=== PATIENT | female | born 1985 | race Two or more races ===

== ENCOUNTER 2016-11-21 19:12 | Emergency (ER) | payer OTHER ==
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
[2016-11-21] MEDS ORDERED: IBUPROFEN 800 MG TABLET PO ONE (19:23)
[2016-11-21] MEDS ORDERED: LIDOCAINE 5% (700 MG) TRANSDERMAL ADH..PATCH TP ONE (20:43)
--- NOTE | 2016-11-21 20:56 | ER Document Report ---
ED General - General Chief Complaint: Shoulder Pain Stated Complaint: SHOULDER PAIN Mode of Arrival: Ambulatory TRAVEL OUTSIDE OF THE [place] IN LAST 30 DAYS: No - Related Data Allergies/Adverse Reactions: morphine [Morphine] Allergy (Verified 11/21/16 19:15) Past Medical History - General Information source: Patient - Social History Smoking Status: Never Smoker Chew tobacco use (# tins/day): No Frequency of alcohol use: None Drug Abuse: None Family History: Reviewed & Not Pertinent Patient has suicidal ideation: No Patient has homicidal ideation: No Renal/ Medical History: Denies: Hx Peritoneal Dialysis Past Surgical History: Reports: Hx Appendectomy - +Bowel resection, R wrist surgery, R partial oophrectomy - Immunizations Hx Diphtheria, Pertussis, Tetanus Vaccination: Yes Physical Exam - Vital signs Vitals: Temp Pulse Resp BP Pulse Ox 98.1 F 102 H 20 107/78 98 11/21/16 19:15 11/21/16 19:15 11/21/16 19:15 11/21/16 19:15 11/21/16 19:15 Course - Vital Signs Vital signs: Temp Pulse Resp BP Pulse Ox 98.1 F 102 H 20 107/78 98 11/21/16 19:15 11/21/16 19:15 11/21/16 19:15 11/21/16 19:15 11/21/16 19:15 Discharge - Discharge Clinical Impression: Right shoulder pain Qualifiers: Chronicity: acute Qualified Code(s): M25.511 - Pain in right shoulder Condition: Good Disposition: HOME, SELF-CARE Instructions: Shoulder Injury ([facility]) Additional Instructions: Please follow-up with your primary care physician or orthopedics surgeon. He may take your pain medication all for severe pain continue to take Tylenol Motrin for pain control. You may use Lidoderm patches prescribed you may also look and ask her pharmacist about salonpas with lidocaine Prescriptions: Lidocaine [Lidoderm 5% (700 mg) Transdermal Patch] 1 patch TP DAILY #10 adh..patch Forms: Return to Work
[2016-11-21 21:15] VITALS: BP 119/83
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
== END 2016-11-21 21:15 | disposition home or self-care (01) ==
LOC: ER 19:12
DX: M25.511 Pain in right shoulder (principal); Z98.890 Other specified postprocedural states
CPT/HCPCS: 99283

== ENCOUNTER 2017-11-19 21:40 | Emergency (ER) | payer SELFPAY | END 2017-11-19 22:00 | disposition left against medical advice (07) | LOC: ER 21:40 | DX: Z53.21 Procedure and treatment not carried out due to patient leaving prior to being seen by health care provider (principal); M79.603 Pain in arm, unspecified ==

== ENCOUNTER → 2017-12-02 | Outpatient (CLI) | payer MEDICAID ==
[2017-12-02 12:43] LABS: A TYPE INFLUENZA AG NEGATIVE (NEGATIVE); B INFLUENZA AG NEGATIVE (NEGATIVE)
== END ==
LOC: OD 12:06
PROVIDERS: ATTEND Nurse Practitioner Family
DX: Z20.828 Contact with and (suspected) exposure to other viral communicable diseases (principal)
CPT/HCPCS: 87804

== ENCOUNTER → 2018-02-23 | Outpatient (CLI) | payer MEDICAID | LOC: OD 17:52 | PROVIDERS: ATTEND Nurse Practitioner Acute Care | DX: J02.9 Acute pharyngitis, unspecified (principal) | CPT/HCPCS: 87070 ==

== ENCOUNTER 2018-04-29 00:42 | Emergency (ER) | payer MEDICAID ==
--- NOTE | 2018-04-29 00:58 | ER Document Report ---
ED General - General Chief Complaint: Shortness Of Breath Stated Complaint: DIFFICULTY BREATHING Time Seen by Provider: 04/29/18 00:48 Mode of Arrival: Medic Information source: Patient, Emergency Med Personnel Notes: 32-year-old female brought to the emergency department by EMS for shortness of breath. Patient has a history of asthma. Patient states over the last couple of days she has had increased shortness of breath and wheezing. She followed up with her primary care physician and was started on prednisone, antibiotic, inhalers. Patient states that she has been using these medications with minimal relief of symptoms. Patient states that her asthma began flaring up tonight and she was on her way to the emergency department when she had to call EMS because she was having a difficult time breathing. She denies any fever, chills, chest pain, nausea, vomiting, diaphoresis. In route to the emergency department, EMS gave the patient 2 albuterol treatments as well as 125 mg of Solu-Medrol. In the emergency department, patient is speaking in complete sentences. Patient states that she feels much better. TRAVEL OUTSIDE OF THE [place] IN LAST 30 DAYS: No - HPI Onset: Last week Onset/Duration: Gradual Quality of pain: No pain Severity: None Pain Level: Denies Associated symptoms: Shortness of breath Exacerbated by: Denies Relieved by: Denies Similar symptoms previously: Yes Recently seen / treated by doctor: Yes - Related Data Allergies/Adverse Reactions: morphine [Morphine] Allergy (Verified 11/21/16 19:15) Past Medical History - Social History Smoking Status: Never Smoker Family History: Reviewed & Not Pertinent Renal/ Medical History: Denies: Hx Peritoneal Dialysis Past Surgical History: Reports: Hx Appendectomy - +Bowel resection, R wrist surgery, R partial oophrectomy - Immunizations Hx Diphtheria, Pertussis, Tetanus Vaccination: Yes Review of Systems - Review of Systems Constitutional: No symptoms reported EENT: No symptoms reported Cardiovascular: No symptoms reported Respiratory: Cough, Short of breath Gastrointestinal: No symptoms reported Genitourinary: No symptoms reported Female Genitourinary: No symptoms reported Musculoskeletal: No symptoms reported Skin: No symptoms reported Neurological/Psychological: No symptoms reported -: Yes All other systems reviewed and negative Physical Exam - Vital signs Vitals: Pulse Ox 99 04/29/18 00:51 - Notes Notes: PHYSICAL EXAMINATION: GENERAL: Well-appearing, well-nourished and in no acute distress. HEAD: Atraumatic, normocephalic. EYES: Pupils equal round and reactive to light, extraocular movements intact, conjunctiva are normal. ENT: Nares patent, oropharynx clear without exudates. Moist mucous membranes. NECK: Normal range of motion, supple without lymphadenopathy LUNGS: Breath sounds clear to auscultation bilaterally and equal. No wheezes rales or rhonchi. HEART: Regular rate and rhythm without murmurs ABDOMEN: Soft, nontender, nondistended abdomen. No guarding, no rebound. No masses appreciated. Female : deferred Musculoskeletal: Normal range of motion, no pitting or edema. No cyanosis. NEUROLOGICAL: Cranial nerves grossly intact. Normal speech, normal gait. Normal sensory, motor exams PSYCH: Normal mood, normal affect. SKIN: Warm, Dry, normal turgor, no rashes or lesions noted. Course - Re-evaluation Re-evalutation: 04/29/18 00:58 When patient arrived in the emergency department, no wheezing appreciated. Patient received 2 treatments of albuterol in route. Patient is speaking in complete sentences. 04/29/18 01:57 XR done. No acute process seen. Patient feels better on re-evaluation. I told the patient to continue her inhalers, steroids and antibiotics as directed, to follow up with PCP this week, and to return for worsening symptoms. - Vital Signs Vital signs: Temp Pulse Resp BP Pulse Ox 110 H 20 120/67 97 04/29/18 01:00 04/29/18 01:00 04/29/18 01:00 04/29/18 01:00 Discharge - Discharge Clinical Impression: Asthma exacerbation Qualifiers: Asthma severity: moderate Asthma persistence: unspecified Qualified Code(s): J45.901 - Unspecified asthma with (acute) exacerbation Condition: Good Disposition: HOME, SELF-CARE Instructions: Asthma ([facility]) Referrals: VIPUL GARCIA NP [NURSE PRACTITIONER] - Follow up as needed
--- NOTE | 2018-04-29 01:34 | RADIOLOGY REPORT (SQ) ---
EXAM DESCRIPTION: XR CHEST 1 VIEW COMPLETED DATE/TME: 04/29/2018 00:52 CLINICAL HISTORY: cough, wheezing. COMPARISON: None. FINDINGS: Single frontal view of the chest. The cardiomediastinal silhouette has normal size and contour. No consolidation, pneumothorax, or pleural effusion. No displaced rib fractures identified. Upper abdominal soft tissues are unremarkable. IMPRESSION: 1. No acute pulmonary process identified.
[2018-04-29 02:38] VITALS: BP 118/77
== END 2018-04-29 02:30 | disposition home or self-care (01) ==
LOC: ER 00:42
DX: J45.901 Unspecified asthma with (acute) exacerbation (principal); R06.02 Shortness of breath; R05 Cough
CPT/HCPCS: 71045; 99285

== ENCOUNTER 2018-08-07 12:10 | Emergency (ER) | payer MEDICAID ==
[2018-08-07] MEDS ORDERED: HYDROMORPHONE HCL INJ/PF 2 MG/ML AMPULE IM ONE (12:20)
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
[2018-08-07] MEDS ORDERED: HYDROMORPHONE HCL INJ/PF 2 MG/ML AMPULE IV ONE ×2 (12:35→14:08)
[2018-08-07] MEDS ORDERED: NORMAL SALINE 500 ML IV ONE (12:36)
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
[2018-08-07 14:19] LABS: APPEARANCE,URINE CLEAR; BILIRUBIN,URINE NEGATIVE (NEGATIVE); COLOR,URINE YELLOW; GLUCOSE, URINE NEGATIVE (NEGATIVE); KETONES,URINE NEGATIVE (NEGATIVE); LEUKOCYTE ESTERASE,URINE NEGATIVE (NEGATIVE); NITRITE,URINE NEGATIVE (NEGATIVE); PROTEIN,URINE NEGATIVE (NEGATIVE); URINE SPECIFIC GRAVITY 1.021; UROBILINOGEN,URINE NEGATIVE mg/dL (<2.0)
[2018-08-07] MEDS ORDERED: FENTANYL CITRATE INJ/PF 100 MCG/2 ML AMPUL IV ONE (15:07)
[2018-08-07 16:09] VITALS: BP 113/76
== END 2018-08-07 16:13 | disposition home or self-care (01) ==
LOC: ER 12:10
DX: S06.0X0A Concussion without loss of consciousness, initial encounter (principal); S30.0XXA Contusion of lower back and pelvis, initial encounter; R10.9 Unspecified abdominal pain; M54.2 Cervicalgia; M79.10 Myalgia, unspecified site; W55.22XA Struck by cow, initial encounter; Y93.K9 Activity, other involving animal care; Y92.71 Barn as the place of occurrence of the external cause; J45.909 Unspecified asthma, uncomplicated; Z88.5 Allergy status to narcotic agent
CPT/HCPCS: 96376; 99284; 96372; 96374; 96375; 36415; 84702; 84703; 81001; 70450; 72125; 72128; 74177; L0120; J3010; J1170; J7040

== ENCOUNTER → 2018-09-17 | Outpatient (CLI) | payer MEDICAID ==
--- NOTE | 2018-09-18 10:42 | EKG REPORT ---
SEVERITY:- NORMAL ECG - SINUS RHYTHM : Confirmed by: Nicolle Martinez 18-Sep-2018 10:42:06
== END ==
LOC: OD 11:16
PROVIDERS: ATTEND Nurse Practitioner Family
DX: R07.9 Chest pain, unspecified (principal)
CPT/HCPCS: 93005; 93010

== ENCOUNTER → 2018-10-02 | Outpatient (CLI) | payer MEDICAID ==
[2018-10-02 10:08] LABS: HEMATOCRIT 38.1 % (36.0-47.0); HEMOGLOBIN 13.5 g/dL (12.0-15.5); MEAN CORPUSCULAR HEMOGLOBIN 31.3 pg (27.0-33.4); MEAN CORPUSCULAR HGB CONC 35.4 g/dL (32.0-36.0); MEAN CORPUSCULAR VOLUME 88 fl (80-97); PLATELET COUNT 311 10^3/uL (150-450); RED BLOOD COUNT 4.32 10^6/uL (3.72-5.28); RED CELL DISTRIBUTION WIDTH 13.4 % (11.5-14.0); WHITE BLOOD COUNT 7.7 10^3/uL (4.0-10.5)
[2018-10-02 10:44] LABS: ERYTHROCYTE SEDIMENTATION RATE 18 mm/hr (0-20)
[2018-10-02 11:22] LABS: ALANINE AMINOTRANSFERASE 29 U/L (9-52); ALBUMIN 4.2 g/dL (3.5-5.0); ALKALINE PHOSPHATASE 82 U/L (38-126); ANION GAP 9 (5-19); ASPARTATE AMINO TRANSFERASE 26 U/L (14-36); BILIRUBIN,DIRECT 0.3 mg/dL (0.0-0.4); BILIRUBIN,TOTAL 0.6 mg/dL (0.2-1.3); BLOOD UREA NITROGEN 15 mg/dL (7-20); CALCIUM 9.1 mg/dL (8.4-10.2); CARBON DIOXIDE 29 mmol/L (22-30); CHLORIDE 103 mmol/L (98-107); CHOLESTEROL 221.79 mg/dL (0-200); GLUCOSE 93 mg/dL (75-110); POTASSIUM 4.5 mmol/L (3.6-5.0); SODIUM 141.4 mmol/L (137-145); TOTAL PROTEIN 7.6 g/dL (6.3-8.2); TRIGLYCERIDES 94 mg/dL (<150)
[2018-10-02 11:35] LABS: DIRECT LDL 160 mg/dL (<100)
[2018-10-04 07:42] LABS: ANTINUCLEAR ANTIBODIES Negative (Negative)
== END ==
LOC: LAB 09:34
PROVIDERS: ATTEND Physician Assistant
DX: R07.9 Chest pain, unspecified (principal); R00.2 Palpitations
CPT/HCPCS: 36415; 80048; 80061; 80076; 83735; 84443; 85027; 85652; 86038; 86141

== ENCOUNTER 2018-10-19 19:07 | Emergency (ER) | payer MEDICAID ==
[2018-10-19] MEDS ORDERED: ASPIRIN 81 MG TABLET, CHEWABLE PO ONE (19:36)
--- NOTE | 2018-10-19 20:08 | RADIOLOGY REPORT (SQ) ---
EXAM DESCRIPTION: CHEST SINGLE VIEW COMPLETED DATE/TIME: 10/19/2018 7:58 pm REASON FOR STUDY: cp COMPARISON: None. EXAM PARAMETERS: NUMBER OF VIEWS: One view. TECHNIQUE: Single frontal radiographic view of the chest acquired. RADIATION DOSE: NA LIMITATIONS: None. FINDINGS: LUNGS AND PLEURA: No opacities, masses or pneumothorax. No pleural effusion. MEDIASTINUM AND HILAR STRUCTURES: No masses. Contour normal. HEART AND VASCULAR STRUCTURES: Heart normal in size. Normal vasculature. BONES: No acute findings. HARDWARE: None in the chest. OTHER: No other significant finding. IMPRESSION: NO ACUTE RADIOGRAPHIC FINDING IN THE CHEST. TECHNICAL DOCUMENTATION: JOB ID: [id number] [employer]- All Rights Reserved Reading location - IP/workstation name: [email or web address]
[2018-10-19] MEDS ORDERED: LEVALBUTEROL HCL NEB 1.25 MG/3 ML AMPUL NEB ONE (21:46)
[2018-10-19] MEDS ORDERED: LIDOCAINE 1% INJ-PF (10 MG/ML) 30 ML SDV NEB ONE (21:46)
[2018-10-19 21:57] LABS: ABSOLUTE EOSINOPHILS # (AUTO) 0.1 10^3/uL (0.0-0.6); ABSOLUTE LYMPHOCYTES (AUTO) 1.3 10^3/uL (0.5-4.7); ABSOLUTE MONOCYTES (AUTO) 0.8 10^3/uL (0.1-1.4); ABSOLUTE NEUT (AUTO) 5.3 10^3/uL (1.7-8.2); BASOPHILS % (AUTO) 0.4 % (0-2); EOSINOPHILS % (AUTO) 1.8 % (0-6); HEMATOCRIT 38.4 % (36.0-47.0); HEMOGLOBIN 13.5 g/dL (12.0-15.5); LYMPHOCYTES % (AUTO) 16.7 % (13-45); MEAN CORPUSCULAR HEMOGLOBIN 31.1 pg (27.0-33.4); MEAN CORPUSCULAR HGB CONC 35.2 g/dL (32.0-36.0); MEAN CORPUSCULAR VOLUME 88 fl (80-97); MONOCYTES % (AUTO) 10.9 % (3-13); PLATELET COUNT 249 10^3/uL (150-450); RED BLOOD COUNT 4.34 10^6/uL (3.72-5.28); RED CELL DISTRIBUTION WIDTH 13.7 % (11.5-14.0); SEGMENTED NEUTROPHILS % (AUTO) 70.2 % (42-78); TOTAL CELLS COUNTED % (AUTO) 100 %; WHITE BLOOD COUNT 7.5 10^3/uL (4.0-10.5)
[2018-10-19 22:19] LABS: ALANINE AMINOTRANSFERASE 150 U/L (9-52); ALKALINE PHOSPHATASE 127 U/L (38-126); ANION GAP 9 (5-19); ASPARTATE AMINO TRANSFERASE 118 U/L (14-36); BILIRUBIN,DIRECT 0.2 mg/dL (0.0-0.4); BILIRUBIN,TOTAL 0.5 mg/dL (0.2-1.3); BLOOD UREA NITROGEN 10 mg/dL (7-20); CALCIUM 9.3 mg/dL (8.4-10.2); CARBON DIOXIDE 26 mmol/L (22-30); CHLORIDE 105 mmol/L (98-107); CREATINE KINASE 64 U/L (30-135); GLUCOSE 95 mg/dL (75-110); LIPASE 51.5 U/L (23-300); SODIUM 139.9 mmol/L (137-145); TOTAL PROTEIN 7.2 g/dL (6.3-8.2)
[2018-10-19 22:32] LABS: CREATINE KINASE MB < 0.22 ng/mL (<4.55); TROPONIN I < 0.012 ng/mL
[2018-10-19] MEDS ORDERED: NORMAL SALINE 1000 ML 1,000 ML IV ONE (23:09)
[2018-10-19] MEDS ORDERED: ONDANSETRON HCL INJ/PF 4 MG/2 ML SDV IV ONE (23:18)
[2018-10-19 23:23] LABS: A TYPE INFLUENZA AG NEGATIVE (NEGATIVE); B INFLUENZA AG NEGATIVE (NEGATIVE)
--- NOTE | 2018-10-20 00:13 | ER Document Report ---
ED General - General Chief Complaint: Chest Pain Stated Complaint: SHORTNESS OF BREATH Time Seen by Provider: 10/19/18 21:02 TRAVEL OUTSIDE OF THE [place] IN LAST 30 DAYS: No - HPI Patient complains to provider of: Shortness of breath Notes: Patient coming in for evaluation of shortness of breath and chest pain. Patient states has a history of asthma did take breathing treatments just prior to arrival however states that it made her feel worse. Patient states that she is currently being monitored for cardiac arrhythmias recently of the echo. Patient denies fevers chills nausea vomiting diarrhea denies any history of PE in the past. Denies any hormone replacement. Patient otherwise upon my evaluation is resting comfortably in no signs of any obvious distress. - Related Data Allergies/Adverse Reactions: morphine [Morphine] Allergy (Verified 08/07/18 12:33) Past Medical History - Social History Smoking Status: Former Smoker Frequency of alcohol use: None Family History: Reviewed & Not Pertinent Patient has suicidal ideation: No Patient has homicidal ideation: No Pulmonary Medical History: Reports: Hx Asthma Renal/ Medical History: Denies: Hx Peritoneal Dialysis Past Surgical History: Reports: Hx Appendectomy - +Bowel resection, R wrist surgery, R partial oophrectomy - Immunizations Hx Diphtheria, Pertussis, Tetanus Vaccination: Yes Review of Systems - Review of Systems Constitutional: No symptoms reported EENT: No symptoms reported Cardiovascular: Chest pain Respiratory: Short of breath Gastrointestinal: No symptoms reported Genitourinary: No symptoms reported Female Genitourinary: No symptoms reported Musculoskeletal: No symptoms reported Skin: No symptoms reported Hematologic/Lymphatic: No symptoms reported Neurological/Psychological: No symptoms reported -: Yes All other systems reviewed and negative Physical Exam - Vital signs Vitals: Temp Pulse Resp BP Pulse Ox 98.3 F 102 H 18 132/81 H 98 10/19/18 19:18 10/19/18 19:18 10/19/18 19:18 10/19/18 19:18 10/19/18 19:18 Interpretation: Normal - General General appearance: Appears well, Alert - HEENT Head: Normocephalic, Atraumatic Eyes: Normal Pupils: PERRL - Respiratory Respiratory status: No respiratory distress Chest status: Nontender Breath sounds: Normal Chest palpation: Normal - Cardiovascular Rhythm: Regular Heart sounds: Normal auscultation Murmur: No - Abdominal Inspection: Normal Distension: No distension Bowel sounds: Normal Tenderness: Nontender Organomegaly: No organomegaly - Back Back: Normal, Nontender - Extremities General upper extremity: Normal inspection, Nontender, Normal color, Normal ROM, Normal temperature General lower extremity: Normal inspection, Nontender, Normal color, Normal ROM, Normal temperature, Normal weight bearing. No: Meir's sign - Neurological Neuro grossly intact: Yes Cognition: Normal Orientation: AAOx4 Bertha Coma Scale Eye Opening: Spontaneous Bertha Coma Scale Verbal: Oriented Bertha Coma Scale Motor: Obeys Commands Chris Coma Scale Total: 15 Speech: Normal Motor strength normal: LUE, RUE, LLE, RLE Sensory: Normal - Psychological Associated symptoms: Normal affect, Normal mood - Skin Skin Temperature: Warm Skin Moisture: Dry Skin Color: Normal Course - Re-evaluation Re-evalutation: 10/20/18 00:48 CTA was read as a left liver lobe pneumonia. Patient has been stable during her visit here in the ER. Patient did have one episode of vomiting. We will send patient home antibiotics we will give the patient a dose of Rocephin prescription for doxycycline for antibiotic coverage recommend follow-up primary care physician continue her breathing treatments at home as needed. Return to ER if symptoms worsen. Patient agrees this plan is ready to be discharged home - Vital Signs Vital signs: Temp Pulse Resp BP Pulse Ox 98.3 F 102 H 18 132/81 H 100 10/19/18 19:18 10/19/18 19:18 10/19/18 19:18 10/19/18 19:18 10/19/18 21:47 - Laboratory Result Diagrams: 10/19/18 21:42 10/19/18 21:42 Laboratory results interpreted by me: 10/19/18 10/19/18 21:42 21:42 D-Dimer 0.61 H AST 118 H ALT 150 H Alkaline Phosphatase 127 H Discharge - Discharge Clinical Impression: Dyspnea Qualifiers: Dyspnea type: unspecified Qualified Code(s): R06.00 - Dyspnea, unspecified Left upper lobe pneumonia Qualifiers: Pneumonia type: due to unspecified organism Qualified Code(s): J18.1 - Lobar pneumonia, unspecified organism Vomiting Qualifiers: Vomiting type: unspecified Nausea presence: unspecified Condition: Good Disposition: HOME, SELF-CARE Instructions: Pneumonia ([facility]), Doxycycline ([facility]), Vomiting ([facility]) Additional Instructions: Laboratory studies not show any critical pathology at this time her vital signs have remained stable the CTA of your chest shows no signs of blood clots but does show signs of pneumonia. Please take antibiotics as prescribed continue breathing treatments as needed at home. Return to ER symptoms worsen follow-up with your primary care physician. Would recommend honey for cough suppression Zofran for nausea Prescriptions: Doxycycline Hyclate 100 mg PO BID #20 capsule Ondansetron [Zofran Odt 4 mg Tablet] 1 - 2 tab PO Q4H PRN #30 tab.rapdis PRN Reason: For Nausea/Vomiting Forms: Return to Work Referrals: KENNEDY MURPHY PA [Primary Care Provider] - Follow up as needed
--- NOTE | 2018-10-20 00:40 | RADIOLOGY REPORT (SQ) ---
EXAM DESCRIPTION: CT CHEST ANGIOGRAPHY WITHOUT THEN WITH IV CONTRAST COMPLETED DATE/TME: 10/19/2018 22:20 CLINICAL HISTORY: 33 years Female, d dimer 0.61. R SHOULDER SURG 06/20. SOB(PT THINKS MOLD EXPOSURE) chest pain Comparison: CR, same day. CT, thoracic spine, August 07, 2018. CT abdomen pelvis, July 12, 2016. Technique: IV contrast. Coronal and sagittal reformat. 3d reconstruction. This exam was performed according to our departmental dose-optimization program, which includes automated exposure control, adjustment of the mA and/or kV according to patient size and/or use of iterative reconstruction technique.[facility]: Dose Right [facility]: CareDose [facility]: Dose Right [facility]: Teradose 4D [facility]: [employer] LIMITATIONS: None Findings: Small patchy and strandy opacity of the left upper lobe. No pulmonary embolus. No right ventricular strain. Inferior neck, axillae, mediastinum, airway, lymphatics, heart, vasculature, upper abdomen, and musculoskeleton appear otherwise unremarkable. Impression: 1. Small left upper lobar pneumonia. 2. No pulmonary embolus.
[2018-10-20] MEDS ORDERED: CEFTRIAXONE 1 GM/D5W RTU 1 GM/50 ML RTUPB IV ONE (00:43)
[2018-10-20] MEDS ORDERED: DOXYCYCLINE HYCLATE 100 MG TABLET PO ONE (00:43)
[2018-10-20 01:42] VITALS: BP 135/76
--- NOTE | 2018-10-20 07:46 | EKG REPORT ---
SEVERITY:- NORMAL ECG - SINUS RHYTHM : Confirmed by: Ammon Krueger MD 20-Oct-2018 07:45:31
== END 2018-10-20 01:42 | disposition home or self-care (01) ==
LOC: ER 19:07
DX: J18.1 Lobar pneumonia, unspecified organism (principal); J45.909 Unspecified asthma, uncomplicated; R06.02 Shortness of breath; R07.9 Chest pain, unspecified; R11.11 Vomiting without nausea; Z88.5 Allergy status to narcotic agent; Z87.891 Personal history of nicotine dependence
CPT/HCPCS: 93005; 94640 ×2; 99285; 96361; 96375; 96365; 36415; 82553; 82550; 83690; 83735; 84703; 85025; 80053; 84484; 85379; 87804; 83880; 71045; 71275; 93010; J3490 ×3; J2405; J7030; J0696

== ENCOUNTER → 2018-11-12 | Outpatient (CLI) | payer MEDICAID ==
--- NOTE | 2018-11-12 17:08 | RADIOLOGY REPORT (SQ) ---
EXAM DESCRIPTION: MRI LUMBAR SPINE WITHOUT COMPLETED DATE/TIME: 11/12/2018 4:46 pm REASON FOR STUDY: M51.36 OTHER INTERVERTEBRAL DISC DEGENERATION, LUMBAR REGION M51.36 OTHER INTERVE RTEBRAL DISC DEGENERATION, LUMBAR REGION COMPARISON: None. TECHNIQUE: Sagittal and Axial imaging includes T1, T2, STIR and gradient echo sequences. Coronal T2/ HASTE imaging. LIMITATIONS: None. FINDINGS: VISUALIZED UPPER ABDOMEN: Limited evaluation. No acute or suspicious findings suggested. SEGMENTATION: No transitional anatomy. The lowest well-developed disc space is labeled L5-S1. ALIGNMENT: Anatomic. VERTEBRAE: Intact. BONE MARROW: Normal. No marrow replacement or reactive changes. DISC SIGNAL: Normal. No significant abnormal signal or loss of height. POSTERIOR ELEMENTS: Generally intact. No pars defect evident. HARDWARE: None in the spine. CORD AND CONUS: Normal in size and signal intensity. Conus at the appropriate level. SOFT TISSUES: No aortic aneurysm seen. No bulky retroperitoneal adenopathy or mass. No paraspinal mas s or fluid. L1-L2: No significant spinal stenosis or exit foraminal stenosis. L2-L3: No significant spinal stenosis or exit foraminal stenosis. L3-L4: No significant spinal stenosis or exit foraminal stenosis. L4-L5: Mild facet arthropathy. No disc bulge. No significant spinal stenosis or exit foraminal sten osis. L5-S1: Mild facet arthropathy. No disc bulge. No significant spinal stenosis or exit foraminal sten osis. LOWER THORACIC: Incompletely imaged. No stenosis seen. SACRUM: Visualized upper sacrum intact. OTHER: No other significant findings. IMPRESSION: MILD FACET ARTHROPATHY IN THE LOWER LUMBAR SPINE. OTHERWISE UNREMARKABLE MRI LUMBAR SPI NE. NO DISC DISEASE, STENOSIS, OR IMPINGEMENT. TECHNICAL DOCUMENTATION: JOB ID: [id number]- All Rights Reserved Reading location - IP/workstation name: [email or web address]
== END ==
LOC: RAD 15:59
PROVIDERS: ATTEND Physician Assistant
DX: M51.36 Other intervertebral disc degeneration, lumbar region (principal)
CPT/HCPCS: 72148

== ENCOUNTER 2018-12-01 14:12 | Emergency (ER) | payer MEDICAID ==
--- NOTE | 2018-12-01 14:36 | ER Document Report ---
ED Medical Screen (RME) - General Chief Complaint: Chest Pain Stated Complaint: CHEST PAIN Time Seen by Provider: 12/01/18 14:17 Primary Care Provider: MARCOS ENAMORADO MD [Primary Care Provider] - Follow up as needed Mode of Arrival: Wheelchair Information source: Patient TRAVEL OUTSIDE OF THE [place] IN LAST 30 DAYS: No - HPI Patient complains to provider of: Chest pain Notes: 12/01/18 14:36 Patient is a 33-year-old female who presents to the emergency room from outpatient radiology complaining of chest pain, apparently patient was scheduled to have an outpatient lower extremity Doppler performed today, she arrived early for her appointment and as she was sitting there waiting developed chest pain and pressure 12/01/18 14:36 RAPID MEDICAL EVALUATION DISCLOSURE I have seen this patient as part of a Rapid Medical Evaluation and, if applicable, placed any initially appropriate orders. The patient will be seen and fully evaluated, including a full history and physical exam, by a provider (in Main ED or Fast Track) when a room becomes available. - Related Data Allergies/Adverse Reactions: morphine [Morphine] Allergy (Verified 12/01/18 14:12) Past Medical History Pulmonary Medical History: Reports: Hx Asthma Renal/ Medical History: Denies: Hx Peritoneal Dialysis Past Surgical History: Reports: Hx Appendectomy - +Bowel resection, R wrist surgery, R partial oophrectomy - Immunizations Hx Diphtheria, Pertussis, Tetanus Vaccination: Yes Physical Exam - Vital signs Vitals: Temp Pulse Resp BP Pulse Ox 98.0 F 96 18 119/86 H 100 12/01/18 14:16 12/01/18 14:16 12/01/18 14:16 12/01/18 14:16 12/01/18 14:16 Course - Vital Signs Vital signs: Temp Pulse Resp BP Pulse Ox 98.0 F 96 18 119/86 H 100 12/01/18 14:16 12/01/18 14:16 12/01/18 14:16 12/01/18 14:16 12/01/18 14:16 Doctor's Discharge - Discharge Referrals: MARCOS ENAMORADO MD [Primary Care Provider] - Follow up as needed
[2018-12-01 15:26] LABS: ABSOLUTE BASOPHILS # (AUTO) 0.1 10^3/uL (0.0-0.2); ABSOLUTE EOSINOPHILS # (AUTO) 0.1 10^3/uL (0.0-0.6); ABSOLUTE MONOCYTES (AUTO) 0.7 10^3/uL (0.1-1.4); ABSOLUTE NEUT (AUTO) 8.4 10^3/uL (1.7-8.2); BASOPHILS % (AUTO) 0.6 % (0-2); EOSINOPHILS % (AUTO) 0.7 % (0-6); HEMATOCRIT 38.9 % (36.0-47.0); HEMOGLOBIN 13.7 g/dL (12.0-15.5); LYMPHOCYTES % (AUTO) 17.4 % (13-45); MEAN CORPUSCULAR HEMOGLOBIN 31.2 pg (27.0-33.4); MEAN CORPUSCULAR HGB CONC 35.2 g/dL (32.0-36.0); MEAN CORPUSCULAR VOLUME 89 fl (80-97); MONOCYTES % (AUTO) 6.1 % (3-13); PLATELET COUNT 317 10^3/uL (150-450); RED BLOOD COUNT 4.38 10^6/uL (3.72-5.28); RED CELL DISTRIBUTION WIDTH 13.9 % (11.5-14.0); SEGMENTED NEUTROPHILS % (AUTO) 75.2 % (42-78); TOTAL CELLS COUNTED % (AUTO) 100 %; WHITE BLOOD COUNT 11.2 10^3/uL (4.0-10.5)
[2018-12-01 15:36] LABS: APPEARANCE,URINE SLIGHTLY-CLOUDY; BILIRUBIN,URINE NEGATIVE (NEGATIVE); COLOR,URINE YELLOW; GLUCOSE, URINE NEGATIVE (NEGATIVE); KETONES,URINE NEGATIVE (NEGATIVE); LEUKOCYTE ESTERASE,URINE SMALL (NEGATIVE); NITRITE,URINE NEGATIVE (NEGATIVE); PROTEIN,URINE NEGATIVE (NEGATIVE); UROBILINOGEN,URINE NEGATIVE mg/dL (<2.0)
[2018-12-01 15:50] LABS: ALANINE AMINOTRANSFERASE 35 U/L (9-52); ALBUMIN 4.9 g/dL (3.5-5.0); ALKALINE PHOSPHATASE 106 U/L (38-126); ANION GAP 9 (5-19); ASPARTATE AMINO TRANSFERASE 29 U/L (14-36); BILIRUBIN,DIRECT 0.2 mg/dL (0.0-0.4); BILIRUBIN,TOTAL 0.5 mg/dL (0.2-1.3); BLOOD UREA NITROGEN 8 mg/dL (7-20); CALCIUM 9.8 mg/dL (8.4-10.2); CARBON DIOXIDE 29 mmol/L (22-30); CHLORIDE 104 mmol/L (98-107); GLUCOSE 87 mg/dL (75-110); LIPASE 67.5 U/L (23-300); SODIUM 141.8 mmol/L (137-145); TOTAL PROTEIN 8.2 g/dL (6.3-8.2)
--- NOTE | 2018-12-01 15:53 | RADIOLOGY REPORT (SQ) ---
EXAM DESCRIPTION: CHEST 2 VIEWS COMPLETED DATE/TIME: 12/01/2018 3:32 pm REASON FOR STUDY: cp COMPARISON: 10/19/2018 EXAM PARAMETERS: NUMBER OF VIEWS: two views TECHNIQUE: Digital Frontal and Lateral radiographic views of the chest acquired. RADIATION DOSE: NA LIMITATIONS: none FINDINGS: LUNGS AND PLEURA: No opacities, masses or pneumothorax. No pleural effusion. MEDIASTINUM AND HILAR STRUCTURES: No masses or contour abnormalities. HEART AND VASCULAR STRUCTURES: Heart normal size. No evidence for failure. BONES: No acute findings. HARDWARE: None in the chest. OTHER: No other significant finding. IMPRESSION: No evidence of acute cardiopulmonary process. TECHNICAL DOCUMENTATION: JOB ID: [id number] [employer]- All Rights Reserved Reading location - IP/workstation name: [email or web address]
--- NOTE | 2018-12-01 15:56 | EKG REPORT ---
SEVERITY:- NORMAL ECG - SINUS RHYTHM : Confirmed by: Ammon Krueger MD 01-Dec-2018 15:56:12
[2018-12-01 16:06] LABS: INTERNATIONAL RATION (INR) 0.88; PROTHROMBIN TIME 12.4 SEC (11.4-15.4)
[2018-12-01 16:07] LABS: PARTIAL THROMBOPLASTIN TIME 30.6 SEC (23.5-35.8)
--- NOTE | 2018-12-01 16:24 | ER Document Report ---
ED Cardiac - General Chief Complaint: Chest Pain Stated Complaint: CHEST PAIN Time Seen by Provider: 12/01/18 14:17 Primary Care Provider: MARCOS ENAMORADO MD [EMERITUS] - Follow up as needed Mode of Arrival: Wheelchair Information source: Patient Notes: 33-year-old female presents emergency department with complaints of chest pain and left arm numbness and tingling. Patient states that about 2 PM while she was waiting to get studies done of her lower extremities she began having chest pain and shortness of breath. She describes it as a squeezing sensation in the center of the chest. She denies any radiation. She is having associated paresthesias of the left arm. Patient states that the pain lasted for couple minutes and then resolved. Patient denies any current chest pain. Now she just feels generally weak. She states that she has been worked up for chronic fatigue by her primary care physician Sisi Ramirez. Patient states that she was having an ultrasound done of her lower extremities to evaluate for possible clots. 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 TRAVEL OUTSIDE OF THE [place] IN LAST 30 DAYS: No - HPI Patient complains to provider of: Chest pain Was the onset of pain: Sudden Is the pain a: New problem Chest pain location: Substernal Quality of pain: Dull Severity now: Mild Pain level currently: Denies Chest pain precipitating factors: At Rest Cardiac risk factors: None Positive cardiac history: No Associated symptoms: Shortness of breath Exacerbated by: Denies Relieved by: Nothing Similar symptoms previously: No Recently seen / treated by doctor: Yes - Related Data Allergies/Adverse Reactions: morphine [Morphine] Allergy (Verified 12/01/18 14:12) Past Medical History - General Information source: Patient - Social History Smoking Status: Former Smoker Chew tobacco use (# tins/day): No Frequency of alcohol use: None Drug Abuse: None Family History: Reviewed & Not Pertinent Patient has suicidal ideation: No Patient has homicidal ideation: No Pulmonary Medical History: Reports: Hx Asthma Renal/ Medical History: Denies: Hx Peritoneal Dialysis Past Surgical History: Reports: Hx Appendectomy - +Bowel resection, R wrist surgery, R partial oophrectomy, Hx Orthopedic Surgery - Immunizations Hx Diphtheria, Pertussis, Tetanus Vaccination: Yes Review of Systems - Review of Systems Constitutional: No symptoms reported EENT: No symptoms reported Cardiovascular: Chest pain Respiratory: Short of breath Gastrointestinal: No symptoms reported Genitourinary: No symptoms reported Female Genitourinary: No symptoms reported Musculoskeletal: No symptoms reported Skin: No symptoms reported Hematologic/Lymphatic: No symptoms reported Neurological/Psychological: No symptoms reported -: Yes All other systems reviewed and negative Physical Exam - Vital signs Vitals: Temp Pulse Resp BP Pulse Ox 98.0 F 96 18 119/86 H 100 12/01/18 14:16 12/01/18 14:16 12/01/18 14:16 12/01/18 14:16 12/01/18 14:16 - Notes Notes: PHYSICAL EXAMINATION: GENERAL: Well-appearing, well-nourished and in no acute distress. HEAD: Atraumatic, normocephalic. EYES: Pupils equal round and reactive to light, extraocular movements intact, conjunctiva are normal. ENT: Nares patent, oropharynx clear without exudates. Moist mucous membranes. NECK: Normal range of motion, supple without lymphadenopathy LUNGS: Breath sounds clear to auscultation bilaterally and equal. No wheezes rales or rhonchi. HEART: Regular rate and rhythm without murmurs. Reproducible anterior chest wall pain with palpation. ABDOMEN: Soft, nontender, nondistended abdomen. No guarding, no rebound. No masses appreciated. Female : deferred Musculoskeletal: Normal range of motion, no pitting or edema. No cyanosis. No calf tenderness to palpation. 2+ DP/PT pulses. NEUROLOGICAL: Cranial nerves grossly intact. Normal speech, normal gait. Normal sensory, motor exams PSYCH: Normal mood, normal affect. SKIN: Warm, Dry, normal turgor, no rashes or lesions noted. Course - Re-evaluation Re-evalutation: 12/01/18 16:27 EKG: Ventricular rate 87, NV interval 164, castration 68, QTc 419, normal sinus rhythm. No ST segment elevation. 12/01/18 17:20 Exam remarkable for reproducible chest pain with palpation of the anterior chest wall. Labs and imaging obtained. Troponin is negative. EKG does not show any signs of ST segment elevation. D-dimer obtained and normal. Remaining labs are within normal limits. I discussed the results with the patient. Patient says that her chest pain has returned. I told her that we would need to repeat the troponin. Patient states that she does not want to stay for repeat troponin. Patient is frustrated that we cannot find what is causing her chest pain. Patient is mentally competent. She is aware that her condition may worsen or she may by leaving AGAINST MEDICAL ADVICE. Patient signed AMA paperwork. 12/01/18 17:22 - Vital Signs Vital signs: Temp Pulse Resp BP Pulse Ox 98.0 F 96 17 116/76 99 12/01/18 14:16 12/01/18 14:16 12/01/18 17:00 12/01/18 17:00 12/01/18 17:00 - Laboratory Result Diagrams: 12/01/18 15:08 12/01/18 15:08 Laboratory results interpreted by me: 12/01/18 12/01/18 15:08 15:08 WBC 11.2 H Absolute Neutrophils 8.4 H Ur Leukocyte Esterase SMALL H Discharge - Discharge Clinical Impression: Shortness of breath Chest pain Qualifiers: Chest pain type: unspecified Qualified Code(s): R07.9 - Chest pain, unspecified Condition: Stable Disposition: AGAINST MEDICAL ADVICE Referrals: MARCOS ENAMORADO MD [EMERITUS] - Follow up as needed
[2018-12-01 17:19] VITALS: BP 116/76
== END 2018-12-01 17:22 | disposition left against medical advice (07) ==
LOC: ER 14:12
DX: R06.02 Shortness of breath (principal); R07.9 Chest pain, unspecified; R20.0 Anesthesia of skin; Z88.6 Allergy status to analgesic agent
CPT/HCPCS: 36415; 71046; 80053; 81001; 83690; 84484; 84703; 85025; 85379; 85610; 85730; 93005; 93010; 99285

== ENCOUNTER → 2018-12-01 | Outpatient (CLI) | payer MEDICAID | LOC: SP 12:38 | PROVIDERS: ATTEND Physician Assistant | DX: I87.2 Venous insufficiency (chronic) (peripheral) (principal); Z53.8 Procedure and treatment not carried out for other reasons ==

== ENCOUNTER → 2018-12-07 | Outpatient (CLI) | payer MEDICAID | LOC: LAB 12:21 | PROVIDERS: ATTEND Internal Medicine Cardiovascular Disease | DX: N91.2 Amenorrhea, unspecified (principal) | CPT/HCPCS: 36415; 84703 ==

== ENCOUNTER → 2018-12-21 | Outpatient (CLI) | payer MEDICAID | LOC: LAB 11:23 | PROVIDERS: ATTEND Internal Medicine Cardiovascular Disease | DX: N91.2 Amenorrhea, unspecified (principal) | CPT/HCPCS: 36415; 84703 ==

== ENCOUNTER → 2018-12-22 | Outpatient (CLI) | payer MEDICAID ==
[~2018-12-22] MED LIST: AMINOPHYLLINE INJ/PF 250 MG/10 ML SDV IV ONE; REGADENOSON INJ 0.4 MG/5 ML DISP.SYRIN IV ONE
--- NOTE | 2018-12-23 17:10 | RADIOLOGY REPORT ---
STRESS TEST REPORT [id number] ROOM#: DATE OF SERVICE: 12/22/2018 AGE: 33Y ORDER#: [id number] REFERRING MD: MARCOS ENAMORADO M.D. PROCEDURE PERFORMED: Rest/stress single isotope Cardiolite SPECT imaging with IV Lexiscan stress and gated SPECT imaging. INDICATION: Assessment of chest pains. CLINICAL HISTORY: This is a 33-year-old female with no known coronary artery disease/coronary risk factors of previous smoking. Current symptomatology includes chest pain, heavy pressure, right arm pain, lasting 1 to 2 hours, 2 to 3 times a week, scale 7/10, a history of rapid palpitations and a history of broken ribs on the left side 9 years ago. REPORT: The patient received IV Lexiscan of 0.4 mg infused over 10 seconds and flushed. The resting heart rate was 85 bpm and increased to 155/minute at end infusion. The resting blood pressure was 116/73 and stable around 114/59 at end infusion. The patient had symptoms of chest tightness quickly becoming a chest pain with a flushing sensation. She was given IV aminophylline 100 mg in 4 minute post injection of Lexiscan. Her symptoms completely resolved. The resting 12-lead EKG showed normal sinus rhythm [address] bpm. There were normal ST segments. At end infusion, a heart rate of 155, in sinus tachycardia. There were no additional ST-T changes. Myocardial perfusion imaging was performed at rest 60 minutes following the injection of 11.73 mCi of Cardiolite. Ten seconds after the IV infusion of Lexiscan, the patient was injected with 34 mCi of Cardiolite and then flushed. Gated post stress tomographic imaging was performed 60 minutes after stress. FINDINGS: 1. The overall quality of the study is fair. There is a lot of breast attenuation artifacts. 2. The left ventricular cavity is noted to be normal in size in both the rest and stress studies. There is no evidence of transient ischemic dilatation of the left ventricle. 3. SPECT images showed no evidence of IV Lexiscan-induced reversible ischemia and no fixed perfusion defect. Gated SPECT imaging showed normal motion contraction of all LV segments. Left ventricular ejection fraction was calculated to be 78% and normal. IMPRESSSION: MYOCARDIAL PERFUSION IMAGING IS NORMAL. THERE IS NO EVIDENCE OF ANY IV LEXISCAN-INDUCED REVERSIBLE ISCHEMIA AND NO FIXED PERFUSION DEFECT. OVERALL LEFT VENTRICULAR SYSTOLIC FUNCTION WAS NORMAL AT 0.78 AND THERE WERE NO REGIONAL WALL MOTION ABNORMALITIES SEEN. NO PRIOR STUDIES FOR COMPARISION. INTERPRETING PHYSICIAN: MARCOS ENAMORADO M.D. /: [id number] TT: [id number] ID: [id number] /: [id number] TD: [id number] JOB: [id number] cc:MARCOS ENAMORADO M.D. > MTDD
== END ==
LOC: RAD 06:06
PROVIDERS: ATTEND Internal Medicine Cardiovascular Disease
DX: R07.9 Chest pain, unspecified (principal); Z87.891 Personal history of nicotine dependence
CPT/HCPCS: 93017; 78452; A9500; J2785; J0280; Q9969

== ENCOUNTER → 2019-03-30 | Outpatient (CLI) | payer MEDICAID ==
[2019-03-31 16:21] LABS: ANTINUCLEAR ANTIBODIES Negative (Negative)
== END ==
LOC: LAB 11:37
PROVIDERS: ATTEND Physician Assistant
DX: I12.9 Hypertensive chronic kidney disease with stage 1 through stage 4 chronic kidney disease, or unspecified chronic kidney disease (principal); N18.3 Chronic kidney disease, stage 3 (moderate)
CPT/HCPCS: 36415; 85652; 86038; 86141; 86430

== ENCOUNTER 2019-07-30 09:24 | Day surgery (SDC) | payer MEDICAID ==
[~2019-07-30 09:24] MED LIST changes: -AMINOPHYLLINE INJ/PF 250 MG/10 ML SDV IV ONE; +PROPOFOL INJ 200 MG/20 ML VIAL IV ONE; -REGADENOSON INJ 0.4 MG/5 ML DISP.SYRIN IV ONE
[2019-07-30] MEDS ORDERED: PROPOFOL INJ 200 MG/20 ML VIAL IV ONE (11:16)
--- NOTE | 2019-07-30 11:16 | Operative Report ---
Operative Report DATE OF SURGERY: 07/30/19 Operative Report: The risks, benefits and alternatives of the procedure including the risk of bleeding, perforation requiring surgery have been explained to the patient in detail and informed consent has been obtained. Patient is taken back to the endoscopy suite and placed in a left, lateral decubital position. Timeout was called. Propofol medication is administered. Rectal examination is done which did not reveal any masses, tears or fissures. An Olympus videoscope was introduced into the patient's rectum. The scope was then carefully advanced all the way to the cecum. The cecum was identified by the usual anatomical landmarks of the ileocecal valve as well as the appendiceal office. Photodocumentation is obtained. Scope was then sequentially pulled back via the various segments of the colon including the ascending colon, hepatic flexure, transverse colon, splenic flexure, descending colon finding to the rectosigmoid portions of the colon. Retroflexion maneuvers performed. PREOPERATIVE DIAGNOSIS: Change of bowel habits POSTOPERATIVE DIAGNOSIS: Mild right-sided colon inflammation status post biopsy. Internal hemorrhoids. No obstruction seen OPERATION: Colonoscopy with biopsy SURGEON: BUFFY ROSE ANESTHESIA: LMAC TISSUE REMOVED OR ALTERED: As noted above. COMPLICATIONS: None. ESTIMATED BLOOD LOSS: None. INTRAOPERATIVE FINDINGS: As noted above. PROCEDURE: Patient tolerated the procedure well. No immediate postprocedure complications are noted. Patient is discharged in good condition. Discharge date 07/30/2019. Discharge diet: Regular. Discharge activity: Regular. 2 to 3-week follow-up to discuss findings. Patient is instructed to call the office or proceed to the emergency room should there be any further problems or questions. Wait on the pathology.
[2019-07-30 11:44] VITALS: BP 112/68
== END 2019-07-30 12:00 | disposition home or self-care (01) ==
LOC: END 09:24
PROVIDERS: ATTEND Internal Medicine Gastroenterology
DX: K52.9 Noninfective gastroenteritis and colitis, unspecified (principal); K64.8 Other hemorrhoids; J45.909 Unspecified asthma, uncomplicated; M79.7 Fibromyalgia; G62.9 Polyneuropathy, unspecified; Z87.891 Personal history of nicotine dependence
CPT/HCPCS: 45380; 88305 ×2; 00811; J2704; 811

== ENCOUNTER → 2019-08-04 | Outpatient (CLI) | payer MEDICAID ==
--- NOTE | 2019-08-04 08:27 | WOMENS IMAGING REPORT ---
EXAM DESCRIPTION: U/S ABDOMEN LIMITED COMPLETED DATE/TIME: 08/04/2019 8:11 am REASON FOR STUDY: R10.11 RIGHT UPPER QUADRANT PAIN R10.11 RIGHT UPPER QUADRANT PAIN COMPARISON: None. TECHNIQUE: Dynamic and static grayscale images acquired of the abdomen and recorded on PACS. Additio nal selected color Doppler and spectral images recorded. LIMITATIONS: None. FINDINGS: PANCREAS: Pancreatic head is unremarkable. The body and tail were obscured by overlying b owel gas. LIVER: No masses. Echotexture normal. LIVER VASCULATURE: Normal directional flow of the main portal vein and hepatic veins. GALLBLADDER: Single stone. No wall thickening. No pericholecystic edema. ULTRASOUND-DETECTED CHEN'S SIGN: Negative. INTRAHEPATIC DUCTS AND COMMON DUCT: CBD and intrahepatic ducts normal caliber. No filling defects. INFERIOR VENA CAVA: Normal flow. AORTA: Visualized portions of the abdominal aorta are unremarkable. RIGHT KIDNEY: Normal size. Normal echogenicity. No solid or suspicious masses. No hydronephrosis. No calcifications. PERITONEAL AND RIGHT PLEURAL SPACE: No ascites or effusions. OTHER: No other significant findings. IMPRESSION: Gallstone. No wall thickening or pericholecystic edema. Negative sonographic Chen's sign. TECHNICAL DOCUMENTATION: JOB ID: [id number] [employer]- All Rights Reserved Reading location - IP/workstation name: [email or web address]
== END ==
LOC: WI 07:54
PROVIDERS: ATTEND Internal Medicine Gastroenterology
DX: K80.80 Other cholelithiasis without obstruction (principal); R10.11 Right upper quadrant pain
CPT/HCPCS: 76705

== ENCOUNTER → 2019-08-05 | Outpatient (CLI) | payer MEDICAID ==
--- NOTE | 2019-08-05 12:06 | RADIOLOGY REPORT (SQ) ---
EXAM DESCRIPTION: NM HIDA SCAN COMPLETED DATE/TIME: 08/05/2019 10:02 am REASON FOR STUDY: RUQ PAIN (R10.11), GALLSTONE R10.11 RIGHT UPPER QUADRANT PAIN COMPARISON: Right upper quadrant ultrasound 08/04/2019 RADIONUCLIDE AND DOSE: DOSAGE RADIONUCLIDE: 5.4 millicuries Tc99m Mebrofenin. DOSAGE MORPHINE: Not required. The route of agent administration: Intravenous TECHNIQUE: Serial imaging right upper quadrant up to 60 minutes following injection of radionuclide. Patient imaged AP and Right Lateral. LIMITATIONS: None. FINDINGS: LIVER: Normal visualization. Activity clears from the liver by 30 minutes. INTRA-HEPATIC BILE DUCTS: Normal visualization. COMMON BILE DUCT: Normal visualization. GALLBLADDER: Normal visualization. OTHER: No other significant finding. IMPRESSION: NORMAL STUDY WITHOUT CYSTIC OR COMMON DUCT OBSTRUCTION. TECHNICAL DOCUMENTATION: JOB ID: [id number] [employer]- All Rights Reserved Reading location - IP/workstation name: [email or web address]
== END ==
LOC: RAD 08:10
PROVIDERS: ATTEND Internal Medicine Gastroenterology
DX: R10.11 Right upper quadrant pain (principal)
CPT/HCPCS: 78226; A9537; Q9969

== ENCOUNTER 2019-09-13 09:05 | Day surgery (SDC) | payer MEDICAID ==
[~2019-09-13 09:05] MED LIST changes: +ACETAMINOPHEN 1,000 MG/100 ML RTUPB IV PRN; +CEFOXITIN SODIUM 2 GM in DEXTROSE 5%-WATER 100 ML IV PRN; -PROPOFOL INJ 200 MG/20 ML VIAL IV ONE
[2019-09-13] MEDS ORDERED: SUCCINYLCHOLINE CHLORIDE INJ 200 MG/10 ML VIAL ONE (12:00)
[2019-09-13] MEDS ORDERED: ROCURONIUM BROMIDE INJ 50 MG/5 ML VIAL IV ONE (12:00)
[2019-09-13 12:47] LABS: HEMATOCRIT 38.7 % (36.0-47.0); HEMOGLOBIN 13.4 g/dL (12.0-15.5); MEAN CORPUSCULAR HEMOGLOBIN 31.1 pg (27.0-33.4); MEAN CORPUSCULAR HGB CONC 34.7 g/dL (32.0-36.0); MEAN CORPUSCULAR VOLUME 90 fl (80-97); PLATELET COUNT 301 10^3/uL (150-450); RED BLOOD COUNT 4.32 10^6/uL (3.72-5.28); WHITE BLOOD COUNT 13.2 10^3/uL (4.0-10.5)
[2019-09-13] MEDS ORDERED: BUPIVACAINE HCL 0.25 % INJ/PF (2.5 MG/1 ML) 30 ML VIAL ONE (13:03)
[2019-09-13 13:07] LABS: ALBUMIN 4.2 g/dL (3.5-5.0); ALKALINE PHOSPHATASE 98 U/L (38-126); ANION GAP 9 (5-19); ASPARTATE AMINO TRANSFERASE 23 U/L (14-36); BILIRUBIN,TOTAL 0.8 mg/dL (0.2-1.3); BLOOD UREA NITROGEN 9 mg/dL (7-20); CALCIUM 9.1 mg/dL (8.4-10.2); CARBON DIOXIDE 28 mmol/L (22-30); CHLORIDE 102 mmol/L (98-107); GLUCOSE 82 mg/dL (75-110); POTASSIUM 3.4 mmol/L (3.6-5.0); TOTAL PROTEIN 7.6 g/dL (6.3-8.2)
[2019-09-13] MEDS ORDERED: FENTANYL CITRATE INJ/PF 100 MCG/2 ML AMPUL IV PRN ×3 (15:14)
[2019-09-13] MEDS ORDERED: PROMETHAZINE HCL INJ 25 MG/1 ML VIAL IV PRN ×2 (15:14)
[2019-09-13] MEDS ORDERED: ONDANSETRON HCL INJ/PF 4 MG/2 ML SDV IV PRN (15:14)
[2019-09-13] MEDS ORDERED: MEPERIDINE HCL/PF INJ 25 MG/1 ML DISP.SYRIN IV PRN (15:14)
[2019-09-13] MEDS ORDERED: DIPHENHYDRAMINE HCL 50 MG/ML VIAL IV PRN (15:14)
[2019-09-13] MEDS ORDERED: HYDROCODONE/ACETAMINOPHEN 10-325 MG TABLET PO PRN (16:27)
[2019-09-13] MEDS ORDERED: ONDANSETRON HCL INJ/PF 4 MG/2 ML SDV ONE (16:32)
[2019-09-13] MEDS ORDERED: HYDROMORPHONE HCL INJ/PF 2 MG/ML AMPULE ONE (16:32)
[2019-09-13] MEDS ORDERED: LORAZEPAM INJ 2 MG/1 ML VIAL ONE (16:48)
[2019-09-13] MEDS ORDERED: HYDROCODONE/ACETAMINOPHEN 10-325 MG TABLET ONE (17:37)
[2019-09-13 19:55] VITALS: BP 146/87
--- NOTE | 2019-09-15 07:59 | Discharge Summary ---
Discharge Summary (SDC) - Discharge Final Diagnosis: Symptomatic gallstones Date of Surgery: 09/13/19 Discharge Date: 09/13/19 Condition: Stable Forms: ASU Anesthesia D/C Instruction, Discharge POC-Surgical Service Treatment or Instructions: NO DRIVING, LEGAL DECISIONS, ACTIVITIES THAT REQUIRE YOUR FULL ATTENTION UNTIL ANESTHESIA HAS CLEARED YOUR BODY. NO LIFTING MORE THAN 10 POUNDS FOR 2 WEEKS. NO TUB BATHS, SWIMMING, HOT TUBS FOR 2 WEEKS. MAY SHOWER AFTER 48 HOURS. STERISTRIPS WILL FALL OFF ON THEIR OWN. GO TO THE EMERGENCY ROOM FOR NAUSEA/VOMITING OR SEVERE ABDOMINAL PAIN THAT DOES NOT GO AWAY, DIFFICULTY BREATHING, OR CHEST PAIN. YOU HAD NORCO ON 09/13/19 AT 5:40 PM. MAY USE A STOOL SOFTENER OF YOUR CHOICE. KEEP YOUR FOLLOW-UP APPOINTMENT. REVIEW YOUR DISCHARGE PAPERWORK. Referrals: LUCIE VALDOVINOS MD [ACTIVE STAFF] - 09/21/19 8:15 am Discharge Diet: As Tolerated Respiratory Treatments at Home: Deep Breathing/Coughing, Incentive Spirometer Discharge Activity: No Driving, No Lifting Over 10 Pounds, No Lifting/Push/Pulling, No tub bath Home Care Assistance: None Needed Report the Following to Your Physician Immediately: Shortness of Breath, Nausea, Vomiting, Increase in Pain, Yellow Skin, Fever over 101 Degrees, Unusual Bleeding, Redness, Swelling, Warmth, Increased Soreness, Drainage-Foul Smelling
--- NOTE | 2019-09-15 08:13 | Operative Report ---
Nonrecallable Operative Report DATE OF SURGERY: 09/13/19 PREOPERATIVE DIAGNOSIS: Symptomatic gallstones POSTOPERATIVE DIAGNOSIS: 1. Symptomatic gallstones. 2. Dense intra-abdominal adhesions, requiring lysis OPERATION: 1. Laparoscopic lysis of adhesions. 2. Laparoscopic cholecystectomy. SURGEON: LUCIE VALDOVINOS 1ST PLAYER DEVELOPMENT MANAGER: ADA SMITH ANESTHESIA: GA TISSUE REMOVED OR ALTERED: Gallbladder COMPLICATIONS: None apparent ESTIMATED BLOOD LOSS: Minimal PROCEDURE: Drains/implants: None. Procedure in detail: After informed consent was obtained, the patient was brought to the operating room and laid in the supine position. The area of the abdomen was prepped and draped in a normal sterile fashion. A supraumbilical incision was created with a 15 blade scalpel. Dissection was carried to the fascia using sharp means. The linea alba fascia was incised sharply, the abdomen was entered sharply. Finger dissection was used to ensure no significant adhesions were present in this area. Next, the balloon trocar was inserted, gas insufflation was attached, and pneumoperitoneum was achieved. The camera was then used to survey the abdomen. There were dense omental adhesions to the anterior abdominal wall, however there were areas free from adhesions as well. There was an area in the right upper quadrant that was relatively free of adhesions. This was chosen to place the first 5 mm trocar. Lysis of adhesions was then undertaken, specifically in the midline and left upper quadrant. This was done in order to place a second 5 mm trocar. The liver was adhesed to the anterior abdominal wall, which retracted the gallbladder anteriorly. 3 trochars were felt to be sufficient for the operation. Next, attention was turned to lysing adhesions around the gallbladder. Omentum, colon, and duodenum were adherent to the gallbladder. These adhesions were lysed using gentle, sharp dissection. Once the gallbladder was freed from the surrounding tissues. An attempt was made at dissection at the infundibulum. This was moderately successful. The tissues were freed, however a critical view of safety could not be completely obtained due to the configuration of the liver adhesions. In light of this, a dome down technique was preferred prior to ligation of the cystic duct. The gallbladder was freed from the liver using a mixture of sharp dissection, blunt dissection, and judicious electrocautery. Once the gallbladder was freed, the infundibulum and cystic artery were easily identified. A PDS Endoloop was secured around the infundibulum, just distal to the cystic duct junction. The gallbladder was then amputated, placed into an Endo Catch bag, and pulled out through the supraumbilical site. The gallbladder was examined on the back table. The camera was reinserted, and the hilum was inspected. It was found to be free of any leakage of blood or bile. Once this was confirmed, the 5 mm trochars were removed under direct laparoscopic visualization. The supraumbilical trocar was removed, and pneumoperitoneum was relieved. The supraumbilical fascia was closed using 0 Vicryl suture in [id number] fashion. The overlying skin was closed using 4-0 Vicryl Rapide suture in subcuticular fashion. Dressings were placed, and the procedure was concluded. All sponge, instrument, and needle counts were correct x2. Condition: Stable. Ada Smith PA-C was scrubbed and present the entirety the procedure. She assisted with all portions of the procedure including opening of the abdomen, placement of the trochars, holding of the camera, closure of the fascia, and closure of the skin.
== END 2019-09-13 19:00 | disposition home or self-care (01) ==
LOC: OROUT 09:05
PROVIDERS: ATTEND Surgery
DX: K81.1 Chronic cholecystitis (principal); K66.0 Peritoneal adhesions (postprocedural) (postinfection); M79.7 Fibromyalgia; J45.909 Unspecified asthma, uncomplicated; G62.9 Polyneuropathy, unspecified; Z87.891 Personal history of nicotine dependence; Z79.51 Long term (current) use of inhaled steroids
CPT/HCPCS: 36415; 85027; 81025; 80053; 88304 ×2; 00790; 47562; J3490 ×2; J1170; J2060; J0330; J2405; J7060; J0694; 790

== ENCOUNTER 2019-09-14 17:51 | Emergency (ER) | payer MEDICAID ==
[2019-09-14] MEDS ORDERED: NORMAL SALINE 1000 ML 1,000 ML IV ONE (18:26)
[2019-09-14] MEDS ORDERED: HYDROMORPHONE HCL INJ/PF 2 MG/ML AMPULE IV ONE ×2 (18:26→19:38)
[2019-09-14] MEDS ORDERED: ONDANSETRON HCL INJ/PF 4 MG/2 ML SDV IM ONE (18:26)
--- NOTE | 2019-09-14 18:27 | ER Document Report ---
ED Medical Screen (RME) - General Chief Complaint: Post Surgical Pain Stated Complaint: POST OP PAIN/ABDOMINAL PAIN Time Seen by Provider: 09/14/19 18:21 Primary Care Provider: [facility] NP [Primary Care Provider] - Follow up as needed TRAVEL OUTSIDE OF THE [place] IN LAST 30 DAYS: Yes COUNTRY TRAVELED TO/FROM: [facility] Notes: 09/14/19 34-year-old female to the emergency department with complaints of abdominal pain since she had a gallbladder removal yesterday. She states that Dr. Bianchi did the gallbladder removal. She states that she has not been taking the pain medication she is allergic to it. She denies any fevers, chills, chest pain, shortness of breath. She states that she has had some vomiting. She denies any other complaints. Form to brief medical screening exam on patient and determined that she needs further management by main side ER provider. I have placed initial orders to expedite patient's care. - Related Data Allergies/Adverse Reactions: latex Allergy (Verified 07/26/19 14:59) Hives morphine [Morphine] Allergy (Verified 07/26/19 14:59) ibuprofen Adverse Reaction (Verified 07/30/19 09:36) Past Medical History - Past Medical History Cardiac Medical History: Denies: Hx Coronary Artery Disease, Hx Heart Attack, Hx Hypertension Pulmonary Medical History: Reports: Hx Asthma - SEVERE Denies: Hx Bronchitis, Hx COPD, Hx Pneumonia Neurological Medical History: Denies: Hx Cerebrovascular Accident, Hx Seizures Renal/ Medical History: Denies: Hx Peritoneal Dialysis Musculoskeltal Medical History: Denies Hx Arthritis Past Surgical History: Reports: Hx Appendectomy - +Bowel resection, R wrist surgery, R partial oophrectomy, Hx Orthopedic Surgery - Immunizations Hx Diphtheria, Pertussis, Tetanus Vaccination: Yes Physical Exam - Vital signs Vitals: Temp Pulse Resp BP Pulse Ox 98.2 F 106 H 20 132/90 H 98 09/14/19 19:48 09/14/19 19:48 09/14/19 19:48 09/14/19 19:48 09/14/19 19:48 Course - Vital Signs Vital signs: Temp Pulse Resp BP Pulse Ox 98.2 F 106 H 20 132/90 H 98 09/14/19 19:48 09/14/19 19:48 09/14/19 19:48 09/14/19 19:48 09/14/19 19:48 - Laboratory Result Diagrams: 09/14/19 19:09 09/14/19 19:09 Laboratory results interpreted by me: 09/14/19 09/14/19 19:09 19:09 WBC 16.8 H Hct 35.8 L RDW 14.2 H Absolute Neuts (auto) 13.2 H Seg Neutrophils % 78.3 H Ur Leukocyte Esterase TRACE H Doctor's Discharge - Discharge Referrals: [facility], CHUCKER [Primary Care Provider] - Follow up as needed
[2019-09-14 19:26] LABS: ABSOLUTE LYMPHOCYTES (AUTO) 2.4 10^3/uL (0.5-4.7); ABSOLUTE MONOCYTES (AUTO) 1.2 10^3/uL (0.1-1.4); ABSOLUTE NEUT (AUTO) 13.2 10^3/uL (1.7-8.2); BASOPHILS % (AUTO) 0.1 % (0-2); EOSINOPHILS % (AUTO) 0.1 % (0-6); HEMATOCRIT 35.8 % (36.0-47.0); HEMOGLOBIN 12.4 g/dL (12.0-15.5); LYMPHOCYTES % (AUTO) 14.2 % (13-45); MEAN CORPUSCULAR HEMOGLOBIN 31.1 pg (27.0-33.4); MEAN CORPUSCULAR HGB CONC 34.8 g/dL (32.0-36.0); MEAN CORPUSCULAR VOLUME 89 fl (80-97); MONOCYTES % (AUTO) 7.3 % (3-13); PLATELET COUNT 295 10^3/uL (150-450); RED BLOOD COUNT 4.01 10^6/uL (3.72-5.28); RED CELL DISTRIBUTION WIDTH 14.2 % (11.5-14.0); SEGMENTED NEUTROPHILS % (AUTO) 78.3 % (42-78); TOTAL CELLS COUNTED % (AUTO) 100 %; WHITE BLOOD COUNT 16.8 10^3/uL (4.0-10.5)
[2019-09-14 19:42] LABS: ALKALINE PHOSPHATASE 83 U/L (38-126); ANION GAP 10 (5-19); ASPARTATE AMINO TRANSFERASE 31 U/L (14-36); BILIRUBIN,DIRECT 0.1 mg/dL (0.0-0.4); BILIRUBIN,TOTAL 0.5 mg/dL (0.2-1.3); BLOOD UREA NITROGEN 11 mg/dL (7-20); CALCIUM 9.3 mg/dL (8.4-10.2); CARBON DIOXIDE 28 mmol/L (22-30); CHLORIDE 103 mmol/L (98-107); GLUCOSE 91 mg/dL (75-110); POTASSIUM 3.6 mmol/L (3.6-5.0); TOTAL PROTEIN 7.1 g/dL (6.3-8.2)
--- NOTE | 2019-09-14 19:47 | ER Document Report ---
ED General - General Chief Complaint: Post Surgical Pain Stated Complaint: POST OP PAIN/ABDOMINAL PAIN Time Seen by Provider: 09/14/19 18:21 Primary Care Provider: REMEDIOS EAST NP [Primary Care Provider] - Follow up as needed TRAVEL OUTSIDE OF THE [place] IN LAST 30 DAYS: Yes COUNTRY TRAVELED TO/FROM: [facility] Notes: 34-year-old female 24-hour status post laparoscopic cholecystectomy performed at this hospital by Dr. Staley. Patient returns now reporting increasing pain left mid quadrant abdomen. No BM since discharge. Nausea with one episode of vomiting. Says she was given Percocet for pain and that this has not been tolerated in the past causing nausea and vomiting. She says she is allergic to "all kinds of pain medicines" except for Dilaudid and tramadol. She takes tramadol chronically for back pain and says this is not helping her abdominal pain. Comes in specifically requesting Dilaudid today. Denies fever chills or dysuria. She spoke with Dr. Staley by telephone and was instructed to come here for evaluation. - Related Data Allergies/Adverse Reactions: latex Allergy (Verified 07/26/19 14:59) Hives morphine [Morphine] Allergy (Verified 07/26/19 14:59) ibuprofen Adverse Reaction (Verified 07/30/19 09:36) Past Medical History - General Information source: Patient - Social History Smoking Status: Never Smoker Frequency of alcohol use: None Drug Abuse: None Lives with: Family Family History: Reviewed & Not Pertinent Patient has suicidal ideation: No Patient has homicidal ideation: No - Past Medical History Cardiac Medical History: Denies: Hx Coronary Artery Disease, Hx Heart Attack, Hx Hypertension Pulmonary Medical History: Reports: Hx Asthma - SEVERE Denies: Hx Bronchitis, Hx COPD, Hx Pneumonia Neurological Medical History: Denies: Hx Cerebrovascular Accident, Hx Seizures Renal/ Medical History: Denies: Hx Peritoneal Dialysis GI Medical History: Reports: Other - Gallbladder disease with recent surgery Musculoskeletal Medical History: Denies Hx Arthritis Past Surgical History: Reports: Hx Appendectomy - +Bowel resection, R wrist surgery, R partial oophrectomy, Hx Cholecystectomy, Hx Orthopedic Surgery - Immunizations Hx Diphtheria, Pertussis, Tetanus Vaccination: Yes Review of Systems - Review of Systems Notes: Constitutional: Negative for fever. HENT: Negative for sore throat. Eyes: Negative for visual changes. Cardiovascular: Negative for chest pain. Respiratory: Negative for shortness of breath. Gastrointestinal: As per HPI. Genitourinary: Negative for dysuria. Musculoskeletal: Negative for back pain. Skin: Negative for rash. Neurological: Negative for headaches, weakness or numbness. 10 point ROS negative except as marked above and in HPI. Physical Exam - Vital signs Vitals: Temp Pulse Resp BP Pulse Ox 98.2 F 106 H 20 132/90 H 98 09/14/19 19:48 09/14/19 19:48 09/14/19 19:48 09/14/19 19:48 09/14/19 19:48 Notes: GENERAL: Middle-aged female tearful in moderate pain. SKIN: Good turgor no rashes. HEAD: Normocephalic atraumatic. EYES: PERRLA. Conjunctivae and sclerae clear. EARS: CANALS AND TMS CLEAR. NOSE: CLEAR. MOUTH: Moist mucosa. Good dentition. No stridor or edema. No drooling. NECK: Supple. No masses or thyromegaly. No adenopathy. Carotids 2+ without bruits. No JVD. BACK: Symmetrical without tenderness. CHEST: Respirations unlabored. Breath sounds clear and symmetrical. HEART: Regular rhythm. No murmur gallop or rub. ABDOMEN: Multiple fresh laparoscopy ports with mild bruising. There is no redness or drainage. Abdomen is soft. No masses organomegaly. Mild tenderness to left mid quadrant. Bowel sounds normally active. No bruits. GENITALIA: Deferred. EXTREMITIES: No edema. No calf tenderness. Cap refill less than 1.5 seconds. Dorsalis pedis and posterior tibial pulses 3+ and symmetrical. NEUROLOGICAL: GCS 15. Alert and oriented x3. Normal gait. Fluent speech. Cranial nerves II through XII intact. Sensorimotor and cerebellar normal. Normal tone. Psychiatric: Flat affect. Anxious and crying. Course - Re-evaluation Re-evalutation: 09/14/19 19:47 Patient is given IV Dilaudid and Zofran. We are going to administer normal s joy IV. Pending studies include comprehensive metabolic profile and CBC as well as plain abdominal series. We will touch base with Dr. Staley after the studies are completed. 09/14/19 21:30 CBC showed mild elevation of white count. Hemoglobin is normal. Multi-Romero profile is normal. Lipase is normal. Plain films of the abdomen are normal. Findings are discussed with her surgeon Dr. Staley. Patient is demanding an outpatient prescription for Dilaudid. Attending surgeon says he does not feel Dilaudid to be appropriate here. I offered her a prescription for Percocet and she says she is "allergic to it" she also claims to be allergic to NSAIDs. She already has tramadol at home and says that she does not want to take this because she "does not think it will help". I have advised her to follow-up with Dr. staley in the office. Interestingly when I enter the room she was smiling and laughing talking on the cell phone and as soon as I entered the room she immediately started holding her left upper abdominal quadrant and telling me how bad her pain was. - Vital Signs Vital signs: Temp Pulse Resp BP Pulse Ox 98.2 F 106 H 20 132/90 H 98 09/14/19 19:48 09/14/19 19:48 09/14/19 19:48 09/14/19 19:48 09/14/19 19:48 - Laboratory Result Diagrams: 09/14/19 19:09 09/14/19 19:09 Laboratory results interpreted by me: 09/14/19 09/14/19 19:09 19:09 WBC 16.8 H Hct 35.8 L RDW 14.2 H Absolute Neuts (auto) 13.2 H Seg Neutrophils % 78.3 H Ur Leukocyte Esterase TRACE H - Diagnostic Test Radiology reviewed: Reports reviewed Discharge - Discharge Clinical Impression: Postoperative pain Condition: Stable Disposition: HOME, SELF-CARE Additional Instructions: Your Recovery and Discharge If general anesthesia is given or if you are taking narcotics for pain, it may cause you to feel different for 2 or 3 days. You may have trouble remembering and feel tired. You should not drive, drink alcohol, or make any big decisions for at least 2 days. Diet: When you wake up from the anesthesia, you will be able to drink small amounts of liquid. If you do not feel sick, you can begin eating regular foods. Continue to drink about 8 to 10 glasses of water each day. Eat a high-fiber diet so you dont strain while having a bowel movement. Activity: Slowly increase your activity. Be sure to get up and walk every few hours or so to prevent blood clot formation. Do not lift heavy items greater than 10 pounds or participate in strenuous activity for at least 4 weeks. Convalescent leave for 21 days starting today followed by light duty for 21 days. A light duty chit will be given to you at your follow up appointment. Wound Care: Always wash your hands before and after touching near your incision site. Do not soak in a bathtub, go swimming or submerge in water for at least 2 weeks. You may take a shower after the second postoperative day. A small amount of drainage from the incision is normal. If the dressing is soaked with blood, call the General Surgery clinic. A small amount of drainage from the incision is normal. If the dressing is soaked with blood, call your surgeon. If you have Steri-strips in place, they will fall off in 7 to 10 days. If you have a glue-like covering over the incision, allow the glue to flake off on its own. If you have a dressing covering your incision, you may remove your dressing after two days and leave it open to the air. If you have packing inside your wound. Remove the packing in 24 hours and change the dressing as instructed by your surgeon daily. Avoid wearing tight or rough clothing. It may rub against your incisions and make it harder for them to heal. Protect the new skin, especially from the sun. The sun can burn and cause darker scarring. Your scar will heal in about 4 to 6 weeks and will become softer and continue to fade over the next year. Bowel Movements: Avoid straining with bowel movements by increasing the fiber in your diet with high- fiber foods or [id number] medicines (like Metamucil and Fibercon). Be sure you are drinking 8 to 10 glasses of water each day. Be sure to also take the Colace as prescribed to prevent constipation from taking narcotics. Pain: The amount of pain is different for each person. The new medicine you will need after your operation is for pain control. Take Motrin for mild pain and Percocet for moderate to severe pain as needed. You can use throat lozenges if you have sore throat pain from the tube placed in your throat during your anesthesia. Contact your surgeon if you have: Pain that will not go away Pain that gets worse A fever of more than 101F (38.3C) Repeated vomiting Swelling, redness, bleeding, or foul- smelling drainage from your wound site Strong or continuous abdominal pain or swelling of your abdomen No bowel movement by 3 days after the operation Follow up appointments: Follow up in the General Surgery clinic in 2 weeks. Please call for appointment time. Thank you for allowing [facility], Department of General Surgery to participate in your care. Referrals: REMEDIOS EAST NP [Primary Care Provider] - Follow up as needed
[2019-09-14 19:48] LABS: APPEARANCE,URINE SLIGHTLY-CLOUDY; BILIRUBIN,URINE NEGATIVE (NEGATIVE); CALCIUM OXALATE CRYSTALS,URINE RARE /HPF; COLOR,URINE YELLOW; GLUCOSE, URINE NEGATIVE (NEGATIVE); KETONES,URINE NEGATIVE (NEGATIVE); LEUKOCYTE ESTERASE,URINE TRACE (NEGATIVE); NITRITE,URINE NEGATIVE (NEGATIVE); PROTEIN,URINE NEGATIVE (NEGATIVE); URINE SPECIFIC GRAVITY 1.021; UROBILINOGEN,URINE NEGATIVE mg/dL (<2.0)
--- NOTE | 2019-09-14 20:25 | RADIOLOGY REPORT (SQ) ---
EXAM DESCRIPTION: XR ABDOMEN SUPINE AND ERECT WITH CHEST (ABD ACUTE SERIES) COMPLETED DATE/TME: 09/14/2019 19:39 CLINICAL HISTORY: 34 years Female abd pain COMPARISON: 12/01/2018. FINDINGS: The cardiomediastinal silhouette appears unremarkable. No consolidating infiltrates or pleural effusions. No pneumothorax. No free intraperitoneal air is noted. No evidence for organomegaly. Moderate fecal material in the colon. IMPRESSION: No acute abnormality is identified.
[2019-09-14 21:40] VITALS: BP 123/77
== END 2019-09-14 22:03 | disposition home or self-care (01) ==
LOC: ER 17:51
DX: G89.18 Other acute postprocedural pain (principal); R10.9 Unspecified abdominal pain; R11.0 Nausea; Z91.040 Latex allergy status; Z88.6 Allergy status to analgesic agent; Z90.49 Acquired absence of other specified parts of digestive tract
CPT/HCPCS: 36415; 83690; 85025; 80053; 81001; 74022; J1170; J2405; J7030; 96361; 96374; 96375; 96376; 99283